=== PATIENT | female | born 1985 | race African-American/Black ===

== ENCOUNTER 2020-12-28 06:05 | Inpatient (IN) | payer OTHER ==
[2020-12-28 07:42] VITALS: BMI 35.6
[2020-12-28] MEDS ORDERED: OXYTOCIN 20 UNITS in 0.9% NS 40 UNIT/2,000 ML INFUS.BAG IV ONE (07:44)
[2020-12-28] MEDS ORDERED: ceFAZolin SODIUM 1 GM VIAL ONE (07:47)
[2020-12-28] MEDS ORDERED: DEXAMETHASONE SOD PHOSPHATE 4 MG/1 ML VIAL ONE (07:47)
[2020-12-28] MEDS ORDERED: morphine SULFATE/PF 0.5 MG/ML (2cc Syringe - QUVA) ONE (07:47)
[2020-12-28] MEDS ORDERED: ONDANSETRON 4 MG/2 ML VIAL ONE (07:47)
[2020-12-28] MEDS ORDERED: PHENYLEPHRINE HCL 10 MG/1 ML SINGLE DOSE VIAL ONE (07:47)
[2020-12-28] MEDS ORDERED: CITRIC ACID/SODIUM CITRATE 30 ML UNIT-DOSE CUP PO ONE (07:52)
[2020-12-28] MEDS ORDERED: ELECTROLYTE-148 SOLN 500 ML IV ONE (07:52)
[2020-12-28] MEDS ORDERED: ELECTROLYTE-148 SOLN 1,000 ML IV SCH (08:00)
[2020-12-28] MEDS ORDERED: OXYTOCIN 10 UNITS/ML VIAL ONE (08:33)
[2020-12-28] MEDS ORDERED: KETOROLAC TROMETHAMINE 30 MG/1 ML VIAL ONE (09:11)
[2020-12-28] MEDS ORDERED: ONDANSETRON 4 MG/2 ML VIAL IVPUSH PRN (09:36)
[2020-12-28] MEDS ORDERED: IBUPROFEN 800 MG/8 ML IJ IVPB PRN (09:37)
[2020-12-28] MEDS ORDERED: METHYLERGONOVINE MALEATE 0.2 MG/1 ML AMP IM PRN (09:37)
[2020-12-28] MEDS ORDERED: ACETAMINOPHEN 1000 MG/100 ML VIAL (NON FORMULARY) IVPB PRN (09:37)
[2020-12-28] MEDS ORDERED: oxyCODONE HCL 5 MG TABLET PO PRN ×2 (09:37)
[2020-12-28] MEDS: PRENATAL VITAMINS W/ FOLIC ACID TABLET (FP) PO SCH (10:13)
[2020-12-28] MEDS: OXYTOCIN 20 UNITS in 0.9% NS 20 UNIT/1,000 ML INFUS.BAG IV SCH (10:35)
[2020-12-28] MEDS ORDERED: SENNOSIDES/DOCUSATE COMBO (SENNA PLUS) TABLET (UD) PO PRN (22:00)
[2020-12-29] MEDS: SIMETHICONE 80 MG TAB.CHEW (FP) PO PRN ×3 (00:11→14:34)
[2020-12-29] MEDS: ACETAMINOPHEN 325 MG TABLET (FP) PO PRN ×3 (06:24→21:38)
[2020-12-29] MEDS: IBUPROFEN 600 MG TABLET (FP) PO PRN ×3 (06:25→21:38)
[2020-12-29] MEDS: PRENATAL VITAMINS W/ FOLIC ACID TABLET (FP) PO SCH (09:08)
[2020-12-29] MEDS ORDERED: BISACODYL 10 MG SUPP.RECT RC PRN (09:37)
[2020-12-29 14:04] LABS: BASO % 0.3 % (0-2.0); HEMATOCRIT 26.1 % (32.4-45.2); HEMOGLOBIN 8.8 GM/dL (10.7-15.3); LYMPH % 11.8 % (8-40); MCH 30.2 pg (25.7-33.7); MCHC 33.9 g/dl (32.0-36.0); MEAN CELL VOLUME 88.9 fl (80-96); MEAN PLT VOLUME 10.4 fl (7.5-11.1); MONO % 8.9 % (3.8-10.2); PLATELET COUNT 155 10^3/uL (134-434); RBC 2.93 M/mm3 (3.60-5.2); RDW 14.5 % (11.6-15.6); WHITE BLOOD COUNT 7.9 K/mm3 (4.0-10.0)
[2020-12-30] MEDS: IBUPROFEN 600 MG TABLET (FP) PO PRN (04:16)
[2020-12-30] MEDS: ACETAMINOPHEN 325 MG TABLET (FP) PO PRN (04:16)
[2020-12-30] MEDS: SIMETHICONE 80 MG TAB.CHEW (FP) PO PRN (04:16)
[2020-12-30] MEDS: PRENATAL VITAMINS W/ FOLIC ACID TABLET (FP) PO SCH (10:34)
[2020-12-30] MEDS: OXYTOCIN 20 UNITS in 0.9% NS 20 UNIT/1,000 ML INFUS.BAG IV SCH (10:34)
[2020-12-30 13:45] VITALS: BP 105/68; PULSE 79; TEMP 99
== END 2020-12-30 12:50 | disposition home or self-care (01) | DRG 788 ==
LOC: JLDR 06:05 → J3W 10:50
PROVIDERS: ADMIT Obstetrics & Gynecology; ATTEND Obstetrics & Gynecology
PROC: 10D00Z1 Extraction of Products of Conception, Low, Open Approach (ICD-10-PCS; principal; 2020-12-28)
PROC: 0HB7XZZ Excision of Abdomen Skin, External Approach (ICD-10-PCS; 2020-12-28)
DX: O34.211 Maternal care for low transverse scar from previous cesarean delivery (principal); Z3A.39 39 weeks gestation of pregnancy; Z37.0 Single live birth; O75.89 Other specified complications of labor and delivery; L90.5 Scar conditions and fibrosis of skin
CPT/HCPCS: 36415; 85025; 85461; 86999; 88305-TC; 88307-TC; J0131